=== PATIENT | male | born 1960 | race Caucasian/White ===

== ENCOUNTER 2021-07-21 04:23 | Emergency (ER) | payer BC ==
[~2021-07-21] VITALS: Ht 175.3 cm; Wt 86.2 kg
[2021-07-21] MEDS ORDERED: NAPR500 PO (05:27)
[2021-07-21] MEDS ORDERED: ROSU10TA PO (05:28)
[2021-07-21] MEDS ORDERED: Diovan320 MG PO (05:28)
[2021-07-21] MEDS ORDERED: OMEP20ER PO (05:29)
[2021-07-21] MEDS ORDERED: MONT10T PO (05:29)
[2021-07-21] MEDS ORDERED: DECADRON6 M1 PO (06:58)
[2021-07-21] MEDS ORDERED: PROM25 PO (06:58)
== END 2021-07-21 07:18 | disposition home or self-care (01) ==
LOC: ER 04:23
DX: U07.1 COVID-19 (principal)
CPT/HCPCS: 71045; 99284-25; A9270; J1100